=== PATIENT | female | born 1985 | race Two or more races ===

== ENCOUNTER 2018-03-16 18:26 | Emergency (ER) | payer OTHER ==
[~2018-03-16] VITALS: Ht 165.1 cm; Wt 72.6 kg
--- NOTE | 2018-03-16 19:01 | Emergency Room Report ---
History of Present Illness General Chief Complaint: General Complaint Source: Patient Present Illness HPI 33-year-old female patient presents ER status post needlestick injury. Patient works at [employer] reports that she was trying blood and had a needlestick injury that occurred into her right index finger. Patient does not know the medical history of the patient she was stuck with. Patient reports she is up standing on vaccinations. Patient denies fever, chest pain, shortness of breath. Patient denies loss of range of motion of finger. Patient denies active draining from site of injury. Patient denies . patient reports that she cleaned the wound area a initial needlestick. Allergies: Coded Allergies: No Known Allergies (Unverified , 03/16/18) Patient History Past Medical History: see triage record Reviewed Nursing Documentation: PMH: Agreed; PSxH: Agreed Nursing Documentation-PMH Past Medical History: No Stated History Review of Systems All Other Systems: negative except mentioned in HPI Physical Exam Vital Signs Date Time Temp Pulse Resp B/P (MAP) Pulse Ox O2 Delivery O2 Flow Rate FiO2 03/16/18 18:52 98.1 90 16 122/83 94 Room Air 98.1 Sp02 EP Interpretation: reviewed, normal General Appearance: well appearing, no apparent distress, alert, GCS 15, non- toxic Head: normocephalic, atraumatic Respiratory: lungs clear, normal breath sounds, no rhonchi, no respiratory distress, no accessory muscle use, no wheezing, speaking full sentences Cardiovascular #1: regular rate, rhythm, no edema Cardiovascular #2: 2+ radial (R), 2+ radial (L) Musculoskeletal: back normal, digits/nails normal, gait/station normal, normal range of motion, non-tender, other - NVI Neurologic: alert, oriented x3, responsive, motor strength/tone normal, sensory intact Psychiatric: mood/affect normal Skin: other - right hand index finger, proximal phalanx, palmar side: <1mm needle stick, no surrounding erythema or edema, no active drainage, no ecchymosis Medical Decision Making PA Attestation Dr. Abdul is my supervising Physician whom patient management has been discussed with. Diagnostic Impression: Primary Impression: Needle stick injury ER Course Pt. presents to the ED c/o needlestick at work. Ddx considered but are not limited to needlestick exposure to body fluid containing HepB, HepC, and/or HIV. Vital signs: are WNL, pt. is afebrile Ordered HepB, HepC, and HIV screening titers and urine ER COURSE: Patient spoke with nurse production shift supervisor, was informed of health status of patient whom she had the needlestick injury from. Patient has no hx of HIV. Patient discharged prior to completion of lab results, followup tomorrow for results. Wound cleaned in ER. Informed patient need to file incident report with employee [facility]. Patient reports she will file on Monday. Instructed to followup with employee [facility] for screening schedule. Patient does not require PEP treatment at this time. DISCHARGE: At this time pt is stable for d/c to home. Patient is resting comfortably, in no acute distress, nontoxic appearing, talking without difficulty, smiling. Patient to take medications as instructed Will provide with patient care instructions and any necessary prescriptions. Care plan and follow-up instructions provided. Patient instructed to follow-up with primary care provider in 3 - 5 days. Followup with employee health. Patient questions asked and answered. Patient reports understanding and agreement to treatment plan. ER precautions given. Patient instructed to return to ER immediately for any new or worsening of symptoms including but not limited to increasing SOB, persistent fever. - Please note that this Emergency Department Report was dictated using [employer] assistant technology software, occasionally this can lead to erroneous entry secondary to interpretation by the dictation equipment. Last Vital Signs Date Time Temp Pulse Resp B/P (MAP) Pulse Ox O2 Delivery O2 Flow Rate FiO2 03/16/18 18:52 98.1 90 16 122/83 94 Room Air 98.1 Disposition: HOME, SELF-CARE Condition: Stable Patient Instructions: Needle Stick Injury, [id number] Additional Instructions: Followup with primary care provider. Report incident to employee [facility] immediately, file incident report. Take medications as directed. Patient questions asked and answered. ER precautions given, patient instructed to return to ER immediately for any new or worsening of symptoms. Mikal Ling March 16, 2018 19:01
[2018-03-16 19:10] VITALS: BP 122/83
[2018-03-16 20:15] VITALS: BP 122/83
== END 2018-03-16 20:15 | disposition home or self-care (01) ==
LOC: EMR 19:25
DX: S69.81XA Other specified injuries of right wrist, hand and finger(s), initial encounter (principal); W46.0XXA Contact with hypodermic needle, initial encounter; Y93.F9 Activity, other caregiving; Y92.230 Patient room in hospital as the place of occurrence of the external cause; Y99.0 Civilian activity done for income or pay
CPT/HCPCS: 81025; 86703; 86803; 87517; 99283